=== PATIENT | female | born 1955 | race Two or more races ===

== ENCOUNTER 2023-05-15 14:53 | Emergency (ER) | payer OTHER, MEDICAID ==
[~2023-05-15] VITALS: Ht 157.5 cm; Wt 56.8 kg
[2023-05-15 16:00] VITALS: BP 123/65; PULSE 80; RESP 18; O2SAT 99
== END 2023-05-15 16:21 | disposition left against medical advice (07) ==
LOC: ER 14:53
DX: M79.605 Pain in left leg (principal); Z53.21 Procedure and treatment not carried out due to patient leaving prior to being seen by health care provider